=== PATIENT | female | born 1970 | race Caucasian/White ===

== ENCOUNTER 2018-06-21 19:37 | Emergency (ER) | payer MEDICAID, OTHER ==
[2018-06-21] MEDS ORDERED: Ibuprofen 400 MG TAB ONE (21:29)
[2018-06-21] MEDS ORDERED: HYDROcodone/Acetaminophen 10/325 mg Tablet ONE (21:29)
[2018-06-21] MEDS ORDERED: Acetaminophen 325 MG TAB ONE (21:29)
--- NOTE | 2018-06-22 07:39 | RAD ---
THREE VIEWS LEFT FOOT: 06/21/18 HISTORY: Pain. Injury. Possible fracture. COMPARISON: None. FINDINGS: There is hypertrophy of the calcaneus at the Achilles tendon insertion site. Lisfranc alignment is maintained. There is no fracture. There is midfoot soft tissue swelling. IMPRESSION: Soft tissue swelling, without evidence of fracture. POS: HAMLET
== END 2018-06-21 21:36 | disposition home or self-care (01) ==
LOC: MADERS 19:37
DX: S93.602A Unspecified sprain of left foot, initial encounter (principal); E03.9 Hypothyroidism, unspecified; F41.9 Anxiety disorder, unspecified; F17.210 Nicotine dependence, cigarettes, uncomplicated; X50.1XXA Overexertion from prolonged static or awkward postures, initial encounter